=== PATIENT | female | born 1995 | race Caucasian/White ===

== ENCOUNTER 2016-11-16 17:18 | Emergency (ER) ==
[2016-11-16 17:28] VITALS: BP 135/75
[2016-11-16] MEDS ORDERED: DECADRON IM ONE (18:14)
[2016-11-16] MEDS ORDERED: AMOXIL PO ONE (18:14)
[2016-11-16] MEDS ORDERED: ZYRTEC PO ONE (18:15)
[2016-11-16] MEDS ORDERED: LEVAQUIN PO ONE (18:19)
--- NOTE | 2016-11-16 18:20 | PROVIDER DOCUMENTATION ---
HPI-General Adult - General Chief Complaint: Cold Symptoms Stated Complaint: WHEEZING/SOB Time Seen by Provider: 11/16/16 17:51 Source: patient Allergies/Adverse Reactions: Patient Allergies Allergy/AdvReac Type Severity Reaction Status Date / Time latex Allergy SWELLING Verified 12/30/14 10:50 Home Medications: Home Medication List Medication Instructions Recorded Confirmed Last Taken Type Albuterol Sulfate Inhaler 2 puff INH Q6H PRN PRN #1 inhaler 06/24/14 12/30/14 Unknown Rx [Ventolin Hfa] Medroxyprogesterone Acetate 150 mg IM DIRECTED 10/19/14 12/30/14 10/22/14 History [Depo-Provera] Acetaminophen with Codeine 1 each PO Q6H PRN PRN #20 tablet 12/30/14 Unknown Rx [Tylenol with Codeine #3 Tablet] Cetirizine [Zyrtec] 10 mg PO DAILY #20 tablet 11/16/16 Unknown Rx Levofloxacin [Levaquin] 750 mg PO DAILY #10 tablet 11/16/16 Unknown Rx Methylprednisolone [Medrol Dosepak] 4 mg PO DIRECTED #1 package 11/16/16 Unknown Rx - History of Present Illness -Gen Adult Nature of Presenting Problems: Pt. is 21 yof that presents with c/o cough, sinus pressure, LUI, and ear ache. Pt. reports symptoms for one week but denies any fever. Pt. denies any other symptoms at time of exam but does report a Hx of Asthma. Location of Pain/Injury: reports: head. denies: face, mouth, neck, chest, upper extremity, hand(s), abdomen, back, pelvis, genitalia, lower extremity, feet, upper body, lower body, generalized Pain Radiation: reports: no radiation Quality of Pain: reports: aching, pressure. denies: burning, cramping, dull, fullness, indigestion, sharp, stabbing, tearing, throbbing, tightness Severity: reports: mild. denies: moderate, severe Onset/Duration: reports: gradual, 1 week ago Timing: reports: still present. denies: improving, gone now, resolved prior to arrival, intermittent, constant, changing over time, getting worse Context/Activities at Onset: reports: none. denies: recent emotional stress, recent physical stress, recent trauma history, possible bad food, cold exposure , out of country travel Modifying Factors: improves with: nothing Associated Symptoms: reports: cough, EENT symptoms, headaches, sinus congestion/ drainage. denies: anxiety, arm pain, back/neck pain, chest pain, constipation, diaphoresis, diarrhea, dizziness, fatigue, fever/chills, genitourinary problems , heartburn, joint pain, loss of appetite, malaise, muscle aches, nausea, rash, seizure, shortness of breath, sensory/motor loss, pain with inspiration, swelling/mass in abdomen, syncope, vomiting, weakness, trouble walking Similar Symptoms Previously?: Yes Recently seen or treated by another doctor?: No Review of Systems - Adult - REVIEW OF SYSTEMS - ADULT Constitutional: reports: see HPI. denies: chills, fever, fatique Eyes: reports: see HPI. denies: discharge, blurred vision, double vision, eye pain Ears, Nose, Mouth & Throat: reports: see HPI, ear pain, sinus problem. denies: ear discharge, nose pain, loose teeth, mouth/dental pain, throat pain, throat swelling Cardiovascular: reports: see HPI. denies: chest pain, edema, irregular heart rate, orthopnea, palpitations, syncope Respiratory: reports: see HPI, cough. denies: chronic cough, dyspnea on exertion, pleurisy, shortness of breath, wheezing Gastrointestinal: reports: see HPI. denies: abdominal pain, hematemesis, diarrhea, frequent heartburn, nausea, vomiting Genitourinary: reports: see HPI. denies: dysuria, flank pain, hematuria, hesitency, urgency Musculoskeletal: reports: see HPI. denies: bone pain, back pain, joint pain, muscle aches, neck pain Integumentary: reports: see HPI. denies: hives, itching, rash, skin thickening Neurological: reports: see HPI, headache/migraines. denies: ataxia, numbness, paresthesia, seizure, tremors Psychiatric: reports: see HPI. denies: anxiety, depression, emotional problems , insomnia, panic attacks, suicidal thoughts Past History - Adult - PAST MEDICAL HISTORY-ADULT Review of Records: reports: Old Records Reviewed, Nursing Assessment Review, Medications Reviewed, Social history reviewed & non-contributory. Respiratory: reports: asthma Additional History: seasonal allergies - PRIOR SURGERIES/PROCEDURES Surgical/Procedure History: reports: none - IMMUNIZATION STATUS Childhood Immunizations: See Nurse Assessment Flu Vaccine: See Nurse Assessment - FAMILY HISTORY Family History: reviewed, not pertinent - SOCIAL HISTORY Smoking: denies Physical Exam-General - PHYSICAL EXAM-ADULT Initial Vital Signs Reviewed: Yes - CONSTITUTIONAL General Appearance: alert, mild distress, thin. negative: obese, anxious, lethargic, slow to respond, obtunded, combative - EYES Eyes: PERRL/EOMI, pink conjunctivae. negative: conjuctival exudate, scleral icterus, subconjunctival hemorrhage - HEAD, EARS, NOSE, MOUTH & THROAT HENMT: normocephalic/atraumatic, moist mucous membranes, frontal tenderness, maxillary tenderness. negative: angioedema, pharyngeal erythema, tonsillar exudate - NECK Neck: non-tender, full range of motion, supple, normal inspection. negative: lymphadenopathy, trachial deviation, thyromegaly - RESPIRATORY Respiratory: lungs clear, normal breath sounds. negative: crackles, rales, rhonchi, stridor, wheezing - CARDIOVASCULAR Cardiovascular: normal peripheral pulses, regular rate, rhythm, no edema, no murmur, JVD. negative: extra beats, friction rub, irregularly irregular - CHEST (BREASTS) Chest/Breast: deferred - GASTROINTESTINAL (ABDOMEN) Abdominal Exam: normal bowel sounds, non tender, soft. negative: distended, guarding, rigid, rebound, tenderness, hernia, mass - GENITOURINARY Female Genitalia/Pelvic Exam: deferred Rectal Exam: deferred Hemoccult Exam: deferred - LYMPHATIC Lymphatic: no adenopathy. negative: axilla node tender, cervical node tenderness - MUSCULOSKELETAL Back Exam: normal inspection, no CVA tenderness, no vertebral tenderness. negative: ecchymosis, swelling, vertebral tenderness Extremity: normal range of motion, non-tender, normal gait, normal inspection. negative: deformity, erythema, inflammation, swelling, tenderness Peripheral Pulses: radial (R): 2+, radial (L): 2+ - SKIN Integumentary: normal color, normal turgor, warm/dry. negative: cyanosis, diaphoresis, ecchymosis, erythema, jaundice, mottled, pallor, petechiae, purpura , rash, swelling, tenderness - NEUROLOGIC Neurologic: grossly normal, no motor/sensory deficits. negative: aphasia, facial droop, focal weakness, motor weakness, sensory deficit - PSYCHIATRIC Psych/Mental Status: normal mood/affect, normal thought content, normal thought process, oriented x 3. negative: anxious, paranoid, tearful Progress - PLAN OF CARE/RESULTS Progress/Plan/Lab Results: Discussed plan of care with patient. Patient agrees with plan and verbalizes understanding. Vital Signs Temp Pulse Resp BP Pulse Ox 11/16/16 17:25 98.4 F 97 H 18 135/75 100 latex Allergy (Verified 12/30/14 10:50) SWELLING Albuterol Sulfate Inhaler [Ventolin Hfa] 2 puff INH Q6H PRN PRN #1 inhaler 06/24 Medroxyprogesterone Acetate [Depo-Provera] 150 mg IM DIRECTED 10/19/14 Acetaminophen with Codeine [Tylenol with Codeine #3 Tablet] 1 each PO Q6H PRN PRN #20 tablet 12/30/14 Laboratory 11/16/16 17:30 Influenza A (Rapid) NEGATIVE Influenza B (Rapid) NEGATIVE Orders Category Date Time Status Flu [INFLUENZA SCREEN PL] Stat Lab 11/16/16 17:30 Completed Amoxicillin [Amoxil] Med 11/16/16 18:14 Stop Req 500 mg PO NOW ONE Cetirizine [Zyrtec] Med 11/16/16 18:15 Discontinued 10 mg PO NOW ONE Dexamethasone [Decadron] Med 11/16/16 18:14 Discontinued 10 mg IM NOW ONE Levofloxacin [Levaquin] Med 11/16/16 18:19 Discontinued 750 mg PO NOW ONE Laboratory Tests 11/16/16 17:30 Influenza A (Rapid) NEGATIVE Influenza B (Rapid) NEGATIVE Departure - Departure Time of Disposition Order: 18:24 DIAGNOSIS: Sinusitis Qualifiers: Sinusitis location: frontal Chronicity: acute Recurrence: not specified as recurrent Qualified Code(s): J01.10 - Acute frontal sinusitis, unspecified Disposition: HOME 01 Certified Medical Emergency: Emergent Condition: Stable Additional Instructions: Follow up with primary care physician Take medications as directed Return to ED for any concerns or worsening of symptoms ED Follow Up Instructions: You have been treated by a care provider in the Emergency Department. These instructions are being provided to you so you can have an understanding of how to care for yourself upon discharge. Upon discharge from the Emergency Department, you are responsible for making arrangements for follow-up care by a physician of your choice. Take all prescribed medications as directed. Return to the Emergency Department immediately for any new or worsening symptoms. You may call the Physician Referral phone number at [phone] to obtain a list of Physicians who are taking new patients. Prescriptions: Levofloxacin [Levaquin] 750 mg PO DAILY #10 tablet Methylprednisolone [Medrol Dosepak] 4 mg PO DIRECTED #1 package Cetirizine [Zyrtec] 10 mg PO DAILY #20 tablet Attestation - Physician/ MEGHNA Attestation Patient care was provided by Advanced Practice Provider:: Yes Advanced Practice Provider:: Francesco Avendaño Advanced Practice Provider documentation review:: The Mid-level provider documentation, treatment plan and medical decision making was reviewed by the physician who agrees with all treatment and medical decision making by the MLP.
== END 2016-11-16 18:57 | disposition home or self-care (01) ==
LOC: P.ED 17:18
DX: J01.10 Acute frontal sinusitis, unspecified (principal); R05 Cough; R51 Headache; H92.09 Otalgia, unspecified ear; R09.81 Nasal congestion; J45.909 Unspecified asthma, uncomplicated
CPT/HCPCS: 87804; 96372